=== PATIENT | female | born 1990 | race Hispanic/Latino ===

== ENCOUNTER → 2019-07-18 18:21 | Outpatient (ROUT) | payer BC, SELFPAY ==
[2019-07-18 19:02] LABS: Vitamin D 25 Hydroxy (D3) 26.1 ng/mL (30.0-100.0)
[2019-07-18 19:37] LABS: Vitamin B12 453 pg/mL (239-931)
== END ==
PROVIDERS: Visit Provider Internal Medicine
DX: Z78.9 Other specified health status (principal)
CPT/HCPCS: 82306; 82607

== ENCOUNTER → 2019-07-27 14:16 | Outpatient (CLI) | payer BC, SELFPAY ==
--- NOTE | 2019-07-27 | DI.RAD.S_ITS ---
PROCEDURE: XR CHEST 2V INDICATIONS: COUGH TECHNIQUE: 2 views of the chest were acquired. COMPARISON: None. FINDINGS: Surgical changes and devices: None. Lungs and pleura: Lungs are clear. No pleural effusions or pneumothorax. Mediastinum: Mediastinal contours are normal. Heart size is normal. Bones and chest wall: No suspicious bony abnormalities. Soft tissues appear unremarkable. IMPRESSION: Normal for age, source of current cough symptoms is not seen. Dictated by: Andreas Salazar M.D. on 07/27/2019 at 14:50 Approved by: Andreas Salazar M.D. on 07/27/2019 at 14:50
== END ==
PROVIDERS: PCP Internal Medicine; Visit Provider Internal Medicine
DX: R05 Cough (principal)
CPT/HCPCS: 71046

== ENCOUNTER → 2019-08-03 19:37 | Outpatient (ROUT) | payer BC, SELFPAY ==
[2019-08-03 19:54] LABS: Add Manual Diff / Slide Review NO; Basophils Absolute Auto 100 /uL (0-100); Basophils Percent Auto 1.4 % (0-2); Eosinophils Absolute Auto 600 /uL (0-450); Eosinophils Percent Auto 8.4 % (2-4); Hematocrit 43.6 % (36-46); Hemoglobin 14.6 g/dL (12.0-16.0); Lymphocytes Absolute Auto 1800 /uL (1100-4500); Lymphocytes Percent Auto 25.3 % (25-40); Mean Corpuscular HGB Conc 33.5 % (30-36); Mean Corpuscular Hemoglobin 30.2 PG (26-34); Monocytes Absolute Auto 600 /uL (0-900); Monocytes Percent Auto 8.6 % (3-14); Neutrophils Absolute Auto 4000 /uL (1500-7000); Neutrophils Percent Auto 56.3 % (50-75); Platelet Count 154 X10^3/uL (150-400); Red Blood Cell Count 4.84 X10^6/uL (4.0-5.2); Red Cell Distribution Width 11.9 % (11.6-14.8)
[2019-08-03 20:06] LABS: BUN Creatinine Ratio 17.5 (6-22); Blood Urea Nitrogen 7 mg/dL (7-17); Calcium 9.8 mg/dL (8.4-10.2); Carbon Dioxide 24 mmol/L (22-32); Chloride 102 mmol/L (98-107); Estimated Glomerular Filt Rate > 60.0 mL/min (>60); Glucose 84 mg/dL (70-100); Potassium 4.6 mmol/L (3.4-5.1); Sodium 137 mmol/L (137-145)
[2019-08-03 20:09] LABS: HEMOLYSIS 68 (0-50)
== END ==
PROVIDERS: PCP Internal Medicine; Visit Provider Internal Medicine
DX: Z78.9 Other specified health status (principal)
CPT/HCPCS: 80048; 85025

== ENCOUNTER → 2019-08-29 14:38 | Outpatient (CLI) | payer BC, SELFPAY ==
--- NOTE | 2019-08-29 | DI.ECHO.S_ITS ---
[facility]---------+ [facility] +---------+ : : [address] : [place] : : : : [id number] : : : : Phone: [phone]---------+ Echocardiogram Report + + :Name: HERNAN LORENZO Study Date: 08/29/2019 Height: 58 in : :[facility] Weight: 93 lb : : Gender: Female BSA: 1.3 m2 : :: 1990 Age: 29 yrs BP: 114/76 mmHg: :Reason For Study: SOB : :Ordering Physician: Liliana PiperPerformed By: Oscar Patel : :Referring: LILIANA PIPER : + + Interpretation Summary The ejection fraction is estimated to be 60-65%. TV leaflets appear to be minimally displaced apically/ (0.82cm) This could be a normal finding also. Procedure: A two-dimensional transthoracic echocardiogram with color flow and Doppler was performed. The study quality was technically adequate. There is no prior echocardiogram noted for this patient. The patient was in normal sinus rhythm during the exam. Left Ventricle: The left ventricle is normal in size. There is normal left ventricular wall thickness. Left ventricular systolic function is normal. The ejection fraction is estimated to be 60-65%. Left ventricular wall motion is normal. Right Ventricle: The right ventricle is normal in size and function. Atria: The left atrial size is normal. Right atrial size is normal. The interatrial septum is intact with no evidence for an atrial septal defect. Mitral Valve: The mitral valve is normal in structure and function. There is no mitral regurgitation noted. Aortic Valve: The aortic valve is not well visualized. The aortic valve opens well. No aortic regurgitation is present. Tricuspid Valve: The tricuspid valve is normal in structure and function. There is trace tricuspid regurgitation. Pulmonary artery pressures cannot be estimated because of the lack of a measurable TR jet velocity. Pulmonic Valve: The pulmonic valve is not well visualized. There is no pulmonic valvular regurgitation. Great Vessels: The aortic root is normal size. The dimensions of the ascending aorta are normal. The pulmonary artery is normal size. The IVC is of normal diameter and collapses greater than 50% with a sniff. This suggests a low right atrial pressure of 3 mm Hg. Pericardium/ Pleura There is no pericardial effusion. There is no pleural effusion. MMode/2D Measurements & Calculations LVIDd: 4.2 cm LVOT diam: 1.6 cm LVIDs: 2.5 cm Ao root diam: 2.3 cm FS: 38.8 % Aortic Jxn: 2.2 cm EPSS: 0.59 cm IVSd: 0.58 cm LVPWd: 0.83 cm LV merritt. diameter/BSA (cm/m^2): 3.2 LV sys. diameter/BSA (cm/m^2): 1.9 LA A2 area: 14.2 cm2 RA long axis: 3.5 cm LA A4 area: 13.0 cm2 RA area: 10.5 cm2 LA length (vol): 4.8 cm RA vol: 26.8 ml LA vol: 32.6 ml RA : 20.4 ml/m2 LA vol index: 24.8 ml/m2 TAPSE: 2.0 cm Doppler Measurements & Calculations Ao V2 max: 129.7 cm/sec LVOT Max Hemanth: 111.4 cm/sec Ao V2 mean: 99.0 cm/sec LV V1 max P.0 mmHg Ao max P.7 mmHg LV V1 VTI: 24.7 cm Ao mean P.3 mmHg ANGELICA(I,D): 2.0 cm2 Ao V2 VTI: 25.3 cm ANGELICA(V,D): 1.8 cm2 sev ratio: 0.98 ANGELICA indexed to BSA (cm^2/m^2): 1.5 MV E max hemanth: 80.5 cm/sec PA V2 max: 86.9 cm/sec MV A max hemanth: 45.2 cm/sec PA V2 mean: 64.7 cm/sec MV E/A: 1.8 PA mean P.9 mmHg Med Peak E' Hemanth: 12.7 cm/sec PA Accel Time: 0.13 sec E/E' med: 6.3 Lat Peak E' Hemanth: 19.5 cm/sec E/E' lat: 4.1 E/e' average: 5.2 MV dec time: 0.20 sec SV(LVOT): 50.5 ml Reading Physician:03:47 PM
== END ==
PROVIDERS: PCP Internal Medicine; Visit Provider Internal Medicine
DX: R06.02 Shortness of breath (principal)
CPT/HCPCS: 93306

== ENCOUNTER → 2020-05-31 08:38 | Outpatient (CLI) | payer OTHER, SELFPAY ==
[2020-06-01 14:34] LABS: COVID19 Sendout Not Detected (Not Detect)
== END ==
PROVIDERS: PCP Internal Medicine; Visit Provider Nurse Practitioner
DX: Z11.59 Encounter for screening for other viral diseases (principal)
CPT/HCPCS: 87635

== ENCOUNTER → 2020-06-11 08:21 | Outpatient (CLI) | payer OTHER, SELFPAY ==
[2020-06-12 01:26] LABS: COVID19 Sendout Not Detected (Not Detect)
== END ==
PROVIDERS: PCP Internal Medicine; Visit Provider Physician Assistant
DX: Z11.59 Encounter for screening for other viral diseases (principal)
CPT/HCPCS: 87635

== ENCOUNTER → 2021-04-20 12:48 | Outpatient (CLI) | payer OTHER, SELFPAY ==
[2021-04-20 13:32] LABS: COVID19 -Nasal RAPID Negative (Negative)
== END ==
PROVIDERS: PCP Internal Medicine; Referring Provider Physician Assistant; Visit Provider Physician Assistant
DX: Z20.822 Contact with and (suspected) exposure to COVID-19 (principal)
CPT/HCPCS: 87635